=== PATIENT | male | born 1950 | race African-American/Black ===

== ENCOUNTER 2022-02-03 20:12 | Inpatient (IN) | payer MEDICARE, MEDICAID ==
[~2022-02-03] VITALS: Ht 172.7 cm; Wt 88.2 kg
[2022-02-03 21:22] LABS: CLARITY URINE TURBID (CLEAR); COLOR URINE DARK YELLOW (YELLOW); KETONES URINE TRACE (NEGATIVE); LEUKOCYTE ESTERASE URINE 3+ (NEGATIVE); NITRITE URINE NEGATIVE (NEGATIVE); OCCULT BLOOD URINE 2+ (NEGATIVE); PROTEIN URINE 1+ (NEGATIVE); SPECIFIC GRAVITY URINE 1.023 (1.005-1.030)
[2022-02-03 21:32] LABS: BASOPHILS % 0.2 % (0.0-2.0); EOSINOPHILS % 0.4 % (0.0-5.0); HEMATOCRIT. 30.1 % (42.0-52.0); HEMOGLOBIN. 9.6 g/dL (14.0-18.0); LYMPHOCYTES % 12.3 % (20.0-50.0); MEAN CORPUSCULAR HEMOGLOBIN 26.9 pg (28.0-32.0); MEAN CORPUSCULAR VOLUME 84.1 fL (80.0-94.0); MEAN PLATELET VOLUME 7.8 fl (7.4-10.4); MONOCYTES % 9.3 % (2.0-8.0); NEUTROPHILS % 77.8 % (40.0-76.0); PLATELET 318 x1000/uL (130-400); RED BLOOD CELL COUNT 3.58 mill/uL (4.7-6.1); RED CELL DISTRIBUTION WIDTH 15.3 % (11.6-14.6)
[2022-02-03 21:37] LABS: CHLORIDE 103 mEq/L (98-107)
[2022-02-03] MEDS ORDERED: LEVOFLOXACIN 750MG PREMIX 150 ML IV ONE (22:15)
[2022-02-03] MEDS ORDERED: SODIUM CHLORIDE 0.9% 1000ML BAG (SEPSIS BOLUS) IV ONE (22:15)
[2022-02-03] MEDS ORDERED: VANCOMYCIN 1G PREMIX 200 ML IV ONE (22:15)
[2022-02-03] MEDS ORDERED: VANCOMYCIN 1GM PMX (XELLIA) 200 ML IV NR (22:15)
[2022-02-04] VITALS (47 sets, daily range): BP systolic 67–123; BP diastolic 34–94
[2022-02-04] MEDS ORDERED: INSULIN REGULAR (HUMULIN R) 300UNITS/3ML VIAL IV ONE
[2022-02-04] MEDS ORDERED: CALCIUM GLUCONATE 1,000 MG in DEXT 5% WATER 100 ML IV ONE ×2
[2022-02-04] MEDS ORDERED: SODIUM BICARBONATE 8.4% 1 MEQ/ML 50ML SYR IV ONE
[2022-02-04] MEDS ORDERED: INSULIN REGULAR (HUMULIN R) 300UNITS/3ML VIAL IV NR (00:30)
[2022-02-04] MEDS ORDERED: CALCIUM GLUCONATE 1GM PREMIX 50 ML IV NR (00:30)
[2022-02-04] MEDS ORDERED: DEXTROSE 50% WATER 50ML SYRINGE IV ONE ×3 (03:45→05:45)
[2022-02-04] MEDS ORDERED: SODIUM POLYSTYRENE SULFONATE 15 G/60 ML BOT PO NR (06:00)
[2022-02-04] MEDS ORDERED: NOREPINEPHRINE 8MG/250ML PMX 250 ML IV STA (08:19)
[2022-02-04] MEDS ORDERED: ALBUMIN HUMAN 25GM/100ML (25%) IV ONE (08:30)
[2022-02-04] MEDS ORDERED: ONDANSETRON HCL 4MG/2ML INJ IV PRN (09:15)
[2022-02-04] MEDS ORDERED: CLONIDINE 0.1MG TABLET PO PRN (09:15)
[2022-02-04] MEDS ORDERED: IPRATROPIUM/ALBUTEROL 0.5-3(2.5)MG/3ML NEB HHN PRN (09:15)
[2022-02-04] MEDS ORDERED: NALOXONE HCL 0.4MG/ML VIAL IV PRN (09:45)
[2022-02-04] MEDS ORDERED: VANCOMYCIN 1GM PMX (XELLIA) 200 ML IV NR (10:00)
[2022-02-04] MEDS: DEXT 5%/0.45% NACL 1000ML 1,000 ML IV SCH (12:23)
[2022-02-04] MEDS ORDERED: LIDOCAINE HCL 1% 10 MG/ML 10ML VIAL ONE (12:32)
[2022-02-04 12:58] LABS: HEMATOCRIT. 29.5 % (42.0-52.0); HEMOGLOBIN. 9.3 g/dL (14.0-18.0); MEAN CORPUSCULAR HEMOGLOBIN 26.3 pg (28.0-32.0); MEAN CORPUSCULAR VOLUME 83.3 fL (80.0-94.0); MEAN PLATELET VOLUME 8.2 fl (7.4-10.4); PLATELET 282 x1000/uL (130-400); RED BLOOD CELL COUNT 3.54 mill/uL (4.7-6.1); RED CELL DISTRIBUTION WIDTH 15.2 % (11.6-14.6)
[2022-02-04 13:08] LABS: PHOSPHORUS 4.8 mg/dL (2.5-4.9)
[2022-02-04 13:38] LABS: PLATELET ESTIMATE NORMAL
[2022-02-04] MEDS: NOREPINEPHRINE 8 MG in DEXT 5% WATER 242 ML IV PRN ×2 (14:51→21:53)
[2022-02-05] VITALS (93 sets, daily range): BP systolic 70–150; BP diastolic 36–88
[2022-02-05] MEDS: DEXT 5%/0.45% NACL 1000ML 1,000 ML IV SCH ×2 (00:38→15:06)
[2022-02-05] MEDS: NOREPINEPHRINE 8 MG in DEXT 5% WATER 242 ML IV PRN ×3 (03:37→16:37)
[2022-02-05 05:12] LABS: HEMATOCRIT. 34.3 % (42.0-52.0); HEMOGLOBIN. 10.6 g/dL (14.0-18.0); MEAN CORPUSCULAR HEMOGLOBIN 26.1 pg (28.0-32.0); MEAN CORPUSCULAR VOLUME 84.7 fL (80.0-94.0); MEAN PLATELET VOLUME 7.8 fl (7.4-10.4); PLATELET 297 x1000/uL (130-400); RED BLOOD CELL COUNT 4.05 mill/uL (4.7-6.1); RED CELL DISTRIBUTION WIDTH 15.4 % (11.6-14.6)
[2022-02-05] MEDS: SODIUM HYPOCHLORITE SOLUTION (0.5%)FULL STRENGTH TOP SCH (10:35)
[2022-02-05 12:10] LABS: PLATELET ESTIMATE NORMAL
[2022-02-05 18:29] LABS: BG BASE EXCESS -4.6 mmol/L (-2.0-2.0); BG CARBOXYHEMOGLOBIN 0.3 % (0.5-1.5); BG DEOXYHEMOGLOBIN 4.6 % (0.0-5.0); BG FRACTION INSPIRED OXYGEN 21; BG HCO3 ACT 21.7 mmol/L (22.0-26.0); BG METHEMOGLOBIN 0.7 % (0.0-1.5); BG OXYGEN SATURATION 95.4 % (92.0-98.5); BG OXYHEMOGLOBIN 94.4 % (94.0-97.0); BG PCO2 45.7 mmHg (35.0-45.0); BG PH 7.295 (7.350-7.450); BG PO2 81.1 mmHg (75.0-100.0); BG SAMPLE SITE RIGHT RADIAL; BG TOTAL HEMOGLOBIN 10.4 g/dL (12.0-18.0); BG VENT MODE ROOM AIR
[2022-02-05] MEDS ORDERED: VANCOMYCIN 750MG PREMIX 150 ML IV NR (20:00)
[2022-02-05] MEDS ORDERED: LEVOFLOXACIN 500MG PREMIX 100 ML IV SCH (21:00)
[2022-02-05] MEDS ORDERED: LEVOFLOXACIN 750MG PREMIX 150 ML IV SCH (21:00)
[2022-02-06] VITALS (64 sets, daily range): BP systolic 67–152; BP diastolic 42–89
[2022-02-06] MEDS: NOREPINEPHRINE 8 MG in DEXT 5% WATER 242 ML IV PRN ×3 (00:11→19:06)
[2022-02-06] MEDS: DIPHENHYDRAMINE 50MG/ML VIAL IV PRN (00:20)
[2022-02-06] MEDS: MORPHINE SULFATE 2 MG/ML CPJ (NOT FOR IM USE) IV PRN (02:58)
[2022-02-06] MEDS: DEXT 5%/0.45% NACL 1000ML 1,000 ML IV SCH (04:59)
[2022-02-06 06:13] LABS: HEMATOCRIT. 28.5 % (42.0-52.0); HEMOGLOBIN. 9.5 g/dL (14.0-18.0); MEAN CORPUSCULAR HEMOGLOBIN 27.7 pg (28.0-32.0); MEAN CORPUSCULAR VOLUME 83.7 fL (80.0-94.0); MEAN PLATELET VOLUME 8.5 fl (7.4-10.4); PLATELET 225 x1000/uL (130-400); RED BLOOD CELL COUNT 3.41 mill/uL (4.7-6.1)
[2022-02-06 06:30] LABS: CHLORIDE 109 mEq/L (98-107)
[2022-02-06 06:42] LABS: CREATINE KINASE 731 IU/L (39-308); PHOSPHORUS 2.5 mg/dL (2.5-4.9)
[2022-02-06] MEDS: SODIUM HYPOCHLORITE SOLUTION (0.5%)FULL STRENGTH TOP SCH (09:00)
[2022-02-06] MEDS: MUPIROCIN 2% OINT 15GM TOP SCH (09:00)
[2022-02-06] MEDS: LIDOCAINE HCL 4% CREAM 76GM TUBE TP SCH (09:00)
[2022-02-06] MEDS ORDERED: HYDROCODONE/ACETAMINOPHEN 5/325MG TABLET PO PRN (09:45)
[2022-02-06] MEDS: MIDODRINE HCL 5MG TABLET PO SCH ×3 (10:00→20:21)
[2022-02-06 10:52] LABS: PLATELET ESTIMATE NORMAL
[2022-02-06] MEDS ORDERED: VANCOMYCIN 1,000 MG in DEXT 5% WATER 250 ML IV SCH (14:00)
[2022-02-07] VITALS (76 sets, daily range): BP systolic 68–160; BP diastolic 35–94
[2022-02-07] MEDS: MORPHINE SULFATE 2 MG/ML CPJ (NOT FOR IM USE) IV PRN (04:48)
[2022-02-07 06:09] LABS: BASOPHILS % 0.3 % (0.0-2.0); EOSINOPHILS % 1.9 % (0.0-5.0); HEMATOCRIT. 26.4 % (42.0-52.0); HEMOGLOBIN. 8.5 g/dL (14.0-18.0); LYMPHOCYTES % 16.5 % (20.0-50.0); MEAN CORPUSCULAR HEMOGLOBIN 27.2 pg (28.0-32.0); MEAN CORPUSCULAR VOLUME 84.7 fL (80.0-94.0); MEAN PLATELET VOLUME 8.1 fl (7.4-10.4); MONOCYTES % 11.3 % (2.0-8.0); PLATELET 135 x1000/uL (130-400); RED BLOOD CELL COUNT 3.12 mill/uL (4.7-6.1); RED CELL DISTRIBUTION WIDTH 15.3 % (11.6-14.6)
[2022-02-07] MEDS: DEXT 5%/0.45% NACL 1000ML 1,000 ML IV SCH (06:26)
[2022-02-07] MEDS: NOREPINEPHRINE 8 MG in DEXT 5% WATER 242 ML IV PRN (06:27)
[2022-02-07 07:17] LABS: CHLORIDE 110 mEq/L (98-107)
[2022-02-07] MEDS: MIDODRINE HCL 5MG TABLET PO SCH ×3 (08:40→16:39)
[2022-02-07] MEDS: MUPIROCIN 2% OINT 15GM TOP SCH (09:43)
[2022-02-07] MEDS: LIDOCAINE HCL 4% CREAM 76GM TUBE TP SCH (09:43)
[2022-02-07] MEDS: SODIUM HYPOCHLORITE SOLUTION (0.5%)FULL STRENGTH TOP SCH (09:43)
[2022-02-07] MEDS: LEVOFLOXACIN 750MG PREMIX 150 ML IV SCH (12:39)
[2022-02-07] MEDS: VANCOMYCIN 1GM PMX (XELLIA) 200 ML IV SCH (20:39)
[2022-02-07] MEDS: DIPHENHYDRAMINE 50MG/ML VIAL IV PRN (21:13)
[2022-02-08] VITALS (94 sets, daily range): BP systolic 75–170; BP diastolic 37–105
[2022-02-08 06:39] LABS: BASOPHILS % 0.2 % (0.0-2.0); EOSINOPHILS % 2.8 % (0.0-5.0); HEMATOCRIT. 25.7 % (42.0-52.0); HEMOGLOBIN. 8.4 g/dL (14.0-18.0); LYMPHOCYTES % 21.1 % (20.0-50.0); MEAN CORPUSCULAR HEMOGLOBIN 27.2 pg (28.0-32.0); MEAN PLATELET VOLUME 7.3 fl (7.4-10.4); MONOCYTES % 12.6 % (2.0-8.0); NEUTROPHILS % 63.3 % (40.0-76.0); PLATELET 212 x1000/uL (130-400); RED BLOOD CELL COUNT 3.09 mill/uL (4.7-6.1); RED CELL DISTRIBUTION WIDTH 15.1 % (11.6-14.6)
[2022-02-08 06:54] LABS: CHLORIDE 106 mEq/L (98-107)
[2022-02-08] MEDS: NOREPINEPHRINE 8 MG in DEXT 5% WATER 242 ML IV PRN (08:15)
[2022-02-08] MEDS: MIDODRINE HCL 5MG TABLET PO SCH ×3 (08:39→16:57)
[2022-02-08] MEDS: SODIUM HYPOCHLORITE SOLUTION (0.5%)FULL STRENGTH TOP SCH (08:39)
[2022-02-08] MEDS: LIDOCAINE HCL 4% CREAM 76GM TUBE TP SCH (08:40)
[2022-02-08] MEDS: MUPIROCIN 2% OINT 15GM TOP SCH (08:40)
[2022-02-08] MEDS: LEVOFLOXACIN 750MG PREMIX 150 ML IV SCH (11:58)
[2022-02-08] MEDS: VANCOMYCIN 1GM PMX (XELLIA) 200 ML IV SCH (21:36)
[2022-02-09] VITALS (90 sets, daily range): BP systolic 72–154; BP diastolic 36–79
[2022-02-09] MEDS: NOREPINEPHRINE 8 MG in DEXT 5% WATER 242 ML IV PRN ×2
[2022-02-09 06:03] LABS: BASOPHILS % 0.4 % (0.0-2.0); EOSINOPHILS % 3.3 % (0.0-5.0); HEMATOCRIT. 25.8 % (42.0-52.0); HEMOGLOBIN. 8.4 g/dL (14.0-18.0); LYMPHOCYTES % 22.9 % (20.0-50.0); MEAN CORPUSCULAR HEMOGLOBIN 26.9 pg (28.0-32.0); MEAN CORPUSCULAR VOLUME 82.4 fL (80.0-94.0); MEAN PLATELET VOLUME 7.6 fl (7.4-10.4); MONOCYTES % 13.8 % (2.0-8.0); NEUTROPHILS % 59.6 % (40.0-76.0); PLATELET 210 x1000/uL (130-400); RED BLOOD CELL COUNT 3.13 mill/uL (4.7-6.1); RED CELL DISTRIBUTION WIDTH 15.1 % (11.6-14.6)
[2022-02-09 08:52] LABS: CHLORIDE 103 mEq/L (98-107)
[2022-02-09] MEDS: SODIUM HYPOCHLORITE SOLUTION (0.5%)FULL STRENGTH TOP SCH (09:57)
[2022-02-09] MEDS: MIDODRINE HCL 5MG TABLET PO SCH ×3 (09:57→17:38)
[2022-02-09] MEDS: LIDOCAINE HCL 4% CREAM 76GM TUBE TP SCH (09:58)
[2022-02-09] MEDS: MUPIROCIN 2% OINT 15GM TOP SCH (09:59)
[2022-02-09] MEDS ORDERED: NALOXONE HCL 0.4MG/ML VIAL IV PRN (11:15)
[2022-02-09] MEDS: VANCOMYCIN 1GM PMX (XELLIA) 200 ML IV SCH (21:09)
[2022-02-10] VITALS (88 sets, daily range): BP systolic 72–129; BP diastolic 41–80
[2022-02-10 05:49] LABS: BASOPHILS % 0.4 % (0.0-2.0); EOSINOPHILS % 2.8 % (0.0-5.0); HEMATOCRIT. 24.7 % (42.0-52.0); LYMPHOCYTES % 25.1 % (20.0-50.0); MEAN CORPUSCULAR HEMOGLOBIN 26.9 pg (28.0-32.0); MEAN CORPUSCULAR VOLUME 83.4 fL (80.0-94.0); MEAN PLATELET VOLUME 7.4 fl (7.4-10.4); MONOCYTES % 13.9 % (2.0-8.0); NEUTROPHILS % 57.8 % (40.0-76.0); PLATELET 224 x1000/uL (130-400); RED BLOOD CELL COUNT 2.96 mill/uL (4.7-6.1); RED CELL DISTRIBUTION WIDTH 14.8 % (11.6-14.6)
[2022-02-10 06:18] LABS: CHLORIDE 101 mEq/L (98-107)
[2022-02-10] MEDS: SODIUM HYPOCHLORITE SOLUTION (0.5%)FULL STRENGTH TOP SCH (09:34)
[2022-02-10] MEDS: LIDOCAINE HCL 4% CREAM 76GM TUBE TP SCH (09:34)
[2022-02-10] MEDS: MUPIROCIN 2% OINT 15GM TOP SCH (09:35)
[2022-02-10] MEDS: MIDODRINE HCL 5MG TABLET PO SCH ×3 (09:36→17:10)
[2022-02-11] VITALS (84 sets, daily range): BP systolic 73–135; BP diastolic 15–93
[2022-02-11 06:50] LABS: BASOPHILS % 0.5 % (0.0-2.0); EOSINOPHILS % 1.9 % (0.0-5.0); HEMATOCRIT. 23.6 % (42.0-52.0); HEMOGLOBIN. 7.6 g/dL (14.0-18.0); LYMPHOCYTES % 22.7 % (20.0-50.0); MEAN CORPUSCULAR HEMOGLOBIN 27.2 pg (28.0-32.0); MEAN CORPUSCULAR VOLUME 84.6 fL (80.0-94.0); MEAN PLATELET VOLUME 7.4 fl (7.4-10.4); MONOCYTES % 14.8 % (2.0-8.0); NEUTROPHILS % 60.1 % (40.0-76.0); PLATELET 210 x1000/uL (130-400); RED BLOOD CELL COUNT 2.79 mill/uL (4.7-6.1); RED CELL DISTRIBUTION WIDTH 15.1 % (11.6-14.6)
[2022-02-11 07:10] LABS: CHLORIDE 104 mEq/L (98-107)
[2022-02-11] MEDS: MIDODRINE HCL 5MG TABLET PO SCH ×3 (08:43→18:01)
[2022-02-11] MEDS: VANCOMYCIN 1500MG in DEXTROSE 5% WATER 250ML IV SCH (08:43)
[2022-02-11] MEDS: SODIUM HYPOCHLORITE SOLUTION (0.5%)FULL STRENGTH TOP SCH (08:44)
[2022-02-11] MEDS: LIDOCAINE HCL 4% CREAM 76GM TUBE TP SCH (08:44)
[2022-02-11] MEDS: MUPIROCIN 2% OINT 15GM TOP SCH (08:44)
[2022-02-11] MEDS ORDERED: METO-539 PO (15:25)
[2022-02-11] MEDS ORDERED: FURO20TA4 PO (15:25)
[2022-02-11] MEDS ORDERED: PROT20 PO (15:26)
[2022-02-11] MEDS ORDERED: METF-416 PO (15:26)
[2022-02-11] MEDS ORDERED: LISI-186 PO (15:27)
[2022-02-11] MEDS ORDERED: FOLI-43 PO (15:27)
[2022-02-11] MEDS: NOREPINEPHRINE 8 MG in DEXT 5% WATER 242 ML IV PRN (19:43)
[2022-02-12] VITALS (84 sets, daily range): BP systolic 74–143; BP diastolic 32–75
[2022-02-12 06:02] LABS: CHLORIDE 101 mEq/L (98-107)
[2022-02-12 06:06] LABS: BASOPHILS % 0.2 % (0.0-2.0); EOSINOPHILS % 1.2 % (0.0-5.0); HEMOGLOBIN. 7.4 g/dL (14.0-18.0); MEAN CORPUSCULAR VOLUME 83.5 fL (80.0-94.0); MEAN PLATELET VOLUME 7.3 fl (7.4-10.4); MONOCYTES % 12.8 % (2.0-8.0); NEUTROPHILS % 69.8 % (40.0-76.0); PLATELET 234 x1000/uL (130-400); RED BLOOD CELL COUNT 2.76 mill/uL (4.7-6.1); RED CELL DISTRIBUTION WIDTH 15.5 % (11.6-14.6)
[2022-02-12] MEDS: MIDODRINE HCL 5MG TABLET PO SCH ×3 (08:43→17:34)
[2022-02-12] MEDS: LIDOCAINE HCL 4% CREAM 76GM TUBE TP SCH (08:43)
[2022-02-12] MEDS: SODIUM HYPOCHLORITE SOLUTION (0.5%)FULL STRENGTH TOP SCH (08:43)
[2022-02-12] MEDS: MUPIROCIN 2% OINT 15GM TOP SCH (08:43)
[2022-02-12] MEDS: NOREPINEPHRINE 8 MG in DEXT 5% WATER 242 ML IV PRN (12:11)
[2022-02-12] MEDS: VANCOMYCIN 1500MG in DEXTROSE 5% WATER 250ML IV SCH (21:12)
[2022-02-13] VITALS (54 sets, daily range): BP systolic 73–118; BP diastolic 30–94
[2022-02-13 06:10] LABS: CHLORIDE 102 mEq/L (98-107)
[2022-02-13] MEDS: SODIUM HYPOCHLORITE SOLUTION (0.5%)FULL STRENGTH TOP SCH (08:56)
[2022-02-13] MEDS: MIDODRINE HCL 5MG TABLET PO SCH ×3 (08:56→21:47)
[2022-02-13] MEDS: LIDOCAINE HCL 4% CREAM 76GM TUBE TP SCH (08:56)
[2022-02-13] MEDS: MUPIROCIN 2% OINT 15GM TOP SCH (08:57)
[2022-02-13 09:28] LABS: MEAN CORPUSCULAR HEMOGLOBIN 27.1 pg (28.0-32.0); MEAN CORPUSCULAR VOLUME 83.6 fL (80.0-94.0); MEAN PLATELET VOLUME 7.3 fl (7.4-10.4); PLATELET 231 x1000/uL (130-400); RED BLOOD CELL COUNT 2.43 mill/uL (4.7-6.1); RED CELL DISTRIBUTION WIDTH 15.2 % (11.6-14.6)
[2022-02-13 09:31] LABS: HEMATOCRIT. 20.3 % (42.0-52.0); HEMOGLOBIN. 6.6 g/dL (14.0-18.0)
[2022-02-13 12:34] LABS: PLATELET ESTIMATE NORMAL
[2022-02-13 23:35] LABS: HEMATOCRIT 22.8 % (42.0-52.0); HEMOGLOBIN 7.3 g/dL (14.0-18.0); MEAN CORPUSCULAR HEMOGLOBIN 27.5 pg (28.0-32.0); MEAN CORPUSCULAR VOLUME 85.9 fL (80.0-94.0); PLATELET 250 x1000/uL (130-400); RED BLOOD CELL COUNT 2.65 mill/uL (4.7-6.1); RED CELL DISTRIBUTION WIDTH 15.5 % (11.6-14.6)
[2022-02-14] VITALS (12 sets, daily range): BP systolic 97–138; BP diastolic 57–74
[2022-02-14 04:48] LABS: HEMATOCRIT. 23.9 % (42.0-52.0); HEMOGLOBIN. 7.7 g/dL (14.0-18.0); MEAN CORPUSCULAR HEMOGLOBIN 27.2 pg (28.0-32.0); MEAN CORPUSCULAR VOLUME 83.9 fL (80.0-94.0); MEAN PLATELET VOLUME 7.3 fl (7.4-10.4); PLATELET 257 x1000/uL (130-400); RED BLOOD CELL COUNT 2.84 mill/uL (4.7-6.1); RED CELL DISTRIBUTION WIDTH 15.5 % (11.6-14.6)
[2022-02-14] MEDS: MIDODRINE HCL 5MG TABLET PO SCH ×3 (06:20→22:06)
[2022-02-14 07:12] LABS: CHLORIDE 105 mEq/L (98-107)
[2022-02-14 07:16] LABS: FOLIC ACID (FOLATE) SERUM 10.1 ng/mL (>5.38)
[2022-02-14 07:21] LABS: TOTAL IRON BINDING CAPACITY 188 ug/dL (250-450)
[2022-02-14] MEDS: LIDOCAINE HCL 4% CREAM 76GM TUBE TP SCH (09:00)
[2022-02-14] MEDS: MUPIROCIN 2% OINT 15GM TOP SCH (09:00)
[2022-02-14] MEDS: SODIUM HYPOCHLORITE SOLUTION (0.5%)FULL STRENGTH TOP SCH (09:00)
[2022-02-14 10:28] LABS: PLATELET ESTIMATE NORMAL
[2022-02-15] VITALS (13 sets, daily range): BP systolic 37–127; BP diastolic 15–75
[2022-02-15] MEDS: MIDODRINE HCL 5MG TABLET PO SCH ×3 (06:00→21:42)
[2022-02-15] MEDS: SODIUM HYPOCHLORITE SOLUTION (0.5%)FULL STRENGTH TOP SCH (09:43)
[2022-02-15] MEDS: MUPIROCIN 2% OINT 15GM TOP SCH (09:43)
[2022-02-15] MEDS: LIDOCAINE HCL 4% CREAM 76GM TUBE TP SCH (09:43)
[2022-02-15 11:14] LABS: BASOPHILS % 0.3 % (0.0-2.0); EOSINOPHILS % 1.1 % (0.0-5.0); HEMATOCRIT. 24.4 % (42.0-52.0); HEMOGLOBIN. 7.9 g/dL (14.0-18.0); LYMPHOCYTES % 13.1 % (20.0-50.0); MEAN CORPUSCULAR HEMOGLOBIN 27.5 pg (28.0-32.0); MEAN CORPUSCULAR VOLUME 85.2 fL (80.0-94.0); MEAN PLATELET VOLUME 7.4 fl (7.4-10.4); MONOCYTES % 6.9 % (2.0-8.0); NEUTROPHILS % 78.6 % (40.0-76.0); PLATELET 314 x1000/uL (130-400); RED BLOOD CELL COUNT 2.86 mill/uL (4.7-6.1); RED CELL DISTRIBUTION WIDTH 15.9 % (11.6-14.6)
[2022-02-15 11:41] LABS: CHLORIDE 105 mEq/L (98-107)
[2022-02-16] VITALS (15 sets, daily range): BP systolic 101–139; BP diastolic 53–81
[2022-02-16] MEDS: MIDODRINE HCL 5MG TABLET PO SCH ×3 (06:45→21:53)
[2022-02-16 07:01] LABS: BASOPHILS % 0.6 % (0.0-2.0); EOSINOPHILS % 2.7 % (0.0-5.0); HEMATOCRIT. 22.9 % (42.0-52.0); HEMOGLOBIN. 7.5 g/dL (14.0-18.0); LYMPHOCYTES % 26.2 % (20.0-50.0); MEAN CORPUSCULAR HEMOGLOBIN 27.6 pg (28.0-32.0); MEAN CORPUSCULAR VOLUME 84.1 fL (80.0-94.0); MEAN PLATELET VOLUME 7.6 fl (7.4-10.4); MONOCYTES % 11.4 % (2.0-8.0); NEUTROPHILS % 59.1 % (40.0-76.0); PLATELET 296 x1000/uL (130-400); RED BLOOD CELL COUNT 2.73 mill/uL (4.7-6.1); RED CELL DISTRIBUTION WIDTH 15.9 % (11.6-14.6)
[2022-02-16 07:09] LABS: CHLORIDE 104 mEq/L (98-107)
[2022-02-16] MEDS: MUPIROCIN 2% OINT 15GM TOP SCH (09:54)
[2022-02-16] MEDS: LIDOCAINE HCL 4% CREAM 76GM TUBE TP SCH (09:54)
[2022-02-16] MEDS: SODIUM HYPOCHLORITE SOLUTION (0.5%)FULL STRENGTH TOP SCH (09:55)
[2022-02-17] VITALS (13 sets, daily range): BP systolic 98–127; BP diastolic 52–76
[2022-02-17] MEDS: MIDODRINE HCL 5MG TABLET PO SCH ×3 (06:49→21:28)
[2022-02-17] MEDS: MUPIROCIN 2% OINT 15GM TOP SCH (09:00)
[2022-02-17] MEDS: LIDOCAINE HCL 4% CREAM 76GM TUBE TP SCH (09:00)
[2022-02-17] MEDS: SODIUM HYPOCHLORITE SOLUTION (0.5%)FULL STRENGTH TOP SCH (09:00)
[2022-02-17] MEDS ORDERED: MUPI22OI2 TOP (10:16)
[2022-02-17] MEDS ORDERED: DAKI TOP (10:16)
[2022-02-17] MEDS ORDERED: MIDO5TAB4 PO (10:16)
[2022-02-18] VITALS (17 sets, daily range): BP systolic 47–133; BP diastolic 19–83
[2022-02-18] MEDS: MIDODRINE HCL 5MG TABLET PO SCH ×3 (07:04→21:43)
[2022-02-18] MEDS: SODIUM HYPOCHLORITE SOLUTION (0.5%)FULL STRENGTH TOP SCH (12:34)
[2022-02-18] MEDS: LIDOCAINE HCL 4% CREAM 76GM TUBE TP SCH (12:34)
[2022-02-18] MEDS: MUPIROCIN 2% OINT 15GM TOP SCH (12:35)
[2022-02-18 16:51] LABS: CHLORIDE 98 mEq/L (98-107)
[2022-02-18 17:10] LABS: BASOPHILS % 0.6 % (0.0-2.0); EOSINOPHILS % 3.9 % (0.0-5.0); HEMATOCRIT. 23.4 % (42.0-52.0); HEMOGLOBIN. 7.7 g/dL (14.0-18.0); LYMPHOCYTES % 26.1 % (20.0-50.0); MEAN CORPUSCULAR HEMOGLOBIN 27.5 pg (28.0-32.0); MEAN CORPUSCULAR VOLUME 83.6 fL (80.0-94.0); MEAN PLATELET VOLUME 7.4 fl (7.4-10.4); MONOCYTES % 9.2 % (2.0-8.0); NEUTROPHILS % 60.2 % (40.0-76.0); PLATELET 358 x1000/uL (130-400)
[2022-02-19] VITALS (14 sets, daily range): BP systolic 106–142; BP diastolic 25–122
[2022-02-19 06:16] LABS: BASOPHILS % 0.6 % (0.0-2.0); EOSINOPHILS % 3.1 % (0.0-5.0); HEMATOCRIT. 23.9 % (42.0-52.0); HEMOGLOBIN. 7.9 g/dL (14.0-18.0); LYMPHOCYTES % 30.4 % (20.0-50.0); MEAN CORPUSCULAR VOLUME 84.3 fL (80.0-94.0); MEAN PLATELET VOLUME 7.3 fl (7.4-10.4); MONOCYTES % 10.1 % (2.0-8.0); NEUTROPHILS % 55.8 % (40.0-76.0); PLATELET 341 x1000/uL (130-400); RED BLOOD CELL COUNT 2.84 mill/uL (4.7-6.1); RED CELL DISTRIBUTION WIDTH 16.1 % (11.6-14.6)
[2022-02-19 06:43] LABS: CHLORIDE 101 mEq/L (98-107)
[2022-02-19 06:54] LABS: PHOSPHORUS 3.2 mg/dL (2.5-4.9)
[2022-02-19] MEDS: MIDODRINE HCL 5MG TABLET PO SCH ×3 (06:58→22:11)
[2022-02-19] MEDS: LIDOCAINE HCL 4% CREAM 76GM TUBE TP SCH (09:00)
[2022-02-19] MEDS: SODIUM HYPOCHLORITE SOLUTION (0.5%)FULL STRENGTH TOP SCH (09:00)
[2022-02-19] MEDS: MUPIROCIN 2% OINT 15GM TOP SCH (09:00)
[2022-02-19] MEDS ORDERED: MAGNESIUM 2 G PREMIX 50 ML IV NR (12:30)
[2022-02-20] VITALS (12 sets, daily range): BP systolic 91–134; BP diastolic 31–93
[2022-02-20 05:30] LABS: CHLORIDE 100 mEq/L (98-107)
[2022-02-20 06:10] LABS: BASOPHILS % 0.7 % (0.0-2.0); EOSINOPHILS % 3.2 % (0.0-5.0); HEMATOCRIT. 25.6 % (42.0-52.0); HEMOGLOBIN. 8.2 g/dL (14.0-18.0); LYMPHOCYTES % 25.3 % (20.0-50.0); MEAN CORPUSCULAR HEMOGLOBIN 27.3 pg (28.0-32.0); MEAN CORPUSCULAR VOLUME 84.8 fL (80.0-94.0); MEAN PLATELET VOLUME 7.4 fl (7.4-10.4); MONOCYTES % 10.5 % (2.0-8.0); NEUTROPHILS % 60.3 % (40.0-76.0); PLATELET 355 x1000/uL (130-400); RED BLOOD CELL COUNT 3.02 mill/uL (4.7-6.1); RED CELL DISTRIBUTION WIDTH 15.9 % (11.6-14.6)
[2022-02-20] MEDS: MIDODRINE HCL 5MG TABLET PO SCH ×3 (06:50→22:33)
[2022-02-20] MEDS: LIDOCAINE HCL 4% CREAM 76GM TUBE TP SCH (11:36)
[2022-02-20] MEDS: MUPIROCIN 2% OINT 15GM TOP SCH (11:36)
[2022-02-20] MEDS: PANTOT AC/MIN OIL/PET HY-PHL OINT (AQUAPHOR) TOP SCH (11:36)
[2022-02-21] VITALS (12 sets, daily range): BP systolic 98–134; BP diastolic 58–73
[2022-02-21] MEDS: MIDODRINE HCL 5MG TABLET PO SCH ×4 (07:09→21:25)
[2022-02-21] MEDS: LIDOCAINE HCL 4% CREAM 76GM TUBE TP SCH (09:00)
[2022-02-21] MEDS: PANTOT AC/MIN OIL/PET HY-PHL OINT (AQUAPHOR) TOP SCH (09:01)
[2022-02-21] MEDS: MUPIROCIN 2% OINT 15GM TOP SCH (09:01)
[2022-02-22] VITALS: BP 108/64
[2022-02-22 04:00] VITALS: BP 91/59
[2022-02-22] MEDS: MIDODRINE HCL 5MG TABLET PO SCH ×3 (05:37→20:40)
[2022-02-22] MEDS: PANTOT AC/MIN OIL/PET HY-PHL OINT (AQUAPHOR) TOP SCH (09:39)
[2022-02-22] MEDS: MUPIROCIN 2% OINT 15GM TOP SCH (09:40)
[2022-02-22] MEDS: LIDOCAINE HCL 4% CREAM 76GM TUBE TP SCH (09:43)
[2022-02-22 12:00] VITALS: BP 116/67
[2022-02-22 16:00] VITALS: BP 133/86
[2022-02-22 20:00] VITALS: BP 118/74
[2022-02-22] MEDS: ACETAMINOPHEN 325MG TABLET PO PRN (21:37)
[2022-02-23] VITALS: BP 105/62
[2022-02-23 04:00] VITALS: BP 103/70
[2022-02-23 08:00] VITALS: BP 109/65
[2022-02-23] MEDS: LIDOCAINE HCL 4% CREAM 76GM TUBE TP SCH (09:00)
[2022-02-23] MEDS: PANTOT AC/MIN OIL/PET HY-PHL OINT (AQUAPHOR) TOP SCH (09:00)
[2022-02-23] MEDS: MUPIROCIN 2% OINT 15GM TOP SCH (09:00)
[2022-02-23 12:00] VITALS: BP 100/66
[2022-02-23] MEDS: MIDODRINE HCL 5MG TABLET PO SCH ×3 (14:10→22:45)
[2022-02-23 16:00] VITALS: BP 118/76
[2022-02-23 20:00] VITALS: BP 138/69
[2022-02-24 00:26] VITALS: BP 108/63
[2022-02-24 04:00] VITALS: BP 120/80
[2022-02-24] MEDS: MIDODRINE HCL 5MG TABLET PO SCH ×3 (05:01→21:36)
[2022-02-24 08:00] VITALS: BP 108/66
[2022-02-24] MEDS: PANTOT AC/MIN OIL/PET HY-PHL OINT (AQUAPHOR) TOP SCH (10:06)
[2022-02-24] MEDS: MUPIROCIN 2% OINT 15GM TOP SCH (10:07)
[2022-02-24] MEDS: LIDOCAINE HCL 4% CREAM 76GM TUBE TP SCH (10:08)
[2022-02-24 12:00] VITALS: BP 114/71
[2022-02-24 16:00] VITALS: BP 110/67
[2022-02-24 20:00] VITALS: BP 98/68
[2022-02-25 00:50] VITALS: BP 118/80
[2022-02-25 05:04] VITALS: BP 100/67
[2022-02-25] MEDS: MIDODRINE HCL 5MG TABLET PO SCH ×3 (06:32→21:26)
[2022-02-25 07:07] LABS: HEMATOCRIT. 27.3 % (42.0-52.0); HEMOGLOBIN. 8.9 g/dL (14.0-18.0); MEAN CORPUSCULAR HEMOGLOBIN 27.5 pg (28.0-32.0); MEAN CORPUSCULAR VOLUME 84.1 fL (80.0-94.0); MEAN PLATELET VOLUME 7.6 fl (7.4-10.4); PLATELET 334 x1000/uL (130-400); RED BLOOD CELL COUNT 3.24 mill/uL (4.7-6.1); RED CELL DISTRIBUTION WIDTH 16.2 % (11.6-14.6)
[2022-02-25 07:10] LABS: CHLORIDE 98 mEq/L (98-107)
[2022-02-25 08:00] VITALS: BP 110/81
[2022-02-25] MEDS: LIDOCAINE HCL 4% CREAM 76GM TUBE TP SCH (08:48)
[2022-02-25] MEDS: PANTOT AC/MIN OIL/PET HY-PHL OINT (AQUAPHOR) TOP SCH (08:48)
[2022-02-25] MEDS: MUPIROCIN 2% OINT 15GM TOP SCH (08:49)
[2022-02-25 11:03] LABS: PLATELET ESTIMATE NORMAL
[2022-02-25 12:00] VITALS: BP 129/51
[2022-02-25 16:00] VITALS: BP 117/70
[2022-02-25 20:00] VITALS: BP 114/65
[2022-02-26] VITALS: BP 115/68
[2022-02-26 04:00] VITALS: BP 104/65
[2022-02-26] MEDS: MIDODRINE HCL 5MG TABLET PO SCH ×3 (04:54→22:09)
[2022-02-26 08:00] VITALS: BP 110/66
[2022-02-26] MEDS: ACETAMINOPHEN 325MG TABLET PO PRN (08:14)
[2022-02-26 08:26] LABS: CHLORIDE 101 mEq/L (98-107)
[2022-02-26] MEDS: MUPIROCIN 2% OINT 15GM TOP SCH (09:00)
[2022-02-26] MEDS: LIDOCAINE HCL 4% CREAM 76GM TUBE TP SCH (09:00)
[2022-02-26] MEDS: PANTOT AC/MIN OIL/PET HY-PHL OINT (AQUAPHOR) TOP SCH (09:00)
[2022-02-26 12:00] VITALS: BP 95/56
[2022-02-26 14:39] LABS: PHOSPHORUS 3.3 mg/dL (2.5-4.9)
[2022-02-26 16:00] VITALS: BP 115/66
[2022-02-26 20:00] VITALS: BP 100/65
[2022-02-27] VITALS: BP 104/69
[2022-02-27 04:00] VITALS: BP 111/76
[2022-02-27] MEDS: MIDODRINE HCL 5MG TABLET PO SCH ×3 (05:15→21:00)
[2022-02-27 08:05] VITALS: BP 112/73
[2022-02-27] MEDS: MUPIROCIN 2% OINT 15GM TOP SCH (08:20)
[2022-02-27] MEDS: PANTOT AC/MIN OIL/PET HY-PHL OINT (AQUAPHOR) TOP SCH (08:20)
[2022-02-27] MEDS: LIDOCAINE HCL 4% CREAM 76GM TUBE TP SCH (08:21)
[2022-02-27 10:40] LABS: CHLORIDE 98 mEq/L (98-107)
[2022-02-27 11:57] VITALS: BP 122/74
[2022-02-27 16:00] VITALS: BP 90/64
[2022-02-27 20:00] VITALS: BP 116/68
[2022-02-28] VITALS: BP 108/68
[2022-02-28 04:00] VITALS: BP 105/61
[2022-02-28] MEDS: MIDODRINE HCL 5MG TABLET PO SCH ×3 (06:35→22:04)
[2022-02-28 08:00] VITALS: BP 111/63
[2022-02-28] MEDS: LIDOCAINE HCL 4% CREAM 76GM TUBE TP SCH (10:38)
[2022-02-28] MEDS: MUPIROCIN 2% OINT 15GM TOP SCH (10:38)
[2022-02-28] MEDS: PANTOT AC/MIN OIL/PET HY-PHL OINT (AQUAPHOR) TOP SCH (10:38)
[2022-02-28 12:00] VITALS: BP 130/80
[2022-02-28 16:00] VITALS: BP 110/66
[2022-02-28 20:00] VITALS: BP 100/58
[2022-03-01] VITALS: BP 110/73
[2022-03-01 04:00] VITALS: BP 118/62
[2022-03-01] MEDS: MIDODRINE HCL 5MG TABLET PO SCH ×3 (05:51→21:34)
[2022-03-01 08:00] VITALS: BP 112/68
[2022-03-01 12:00] VITALS: BP 106/64
[2022-03-01] MEDS: LIDOCAINE HCL 4% CREAM 76GM TUBE TP SCH (12:15)
[2022-03-01] MEDS: MUPIROCIN 2% OINT 15GM TOP SCH (12:15)
[2022-03-01] MEDS: PANTOT AC/MIN OIL/PET HY-PHL OINT (AQUAPHOR) TOP SCH (12:15)
[2022-03-01 16:00] VITALS: BP 97/69
[2022-03-01 20:00] VITALS: BP 116/83
[2022-03-02] VITALS: BP 120/64
[2022-03-02 04:00] VITALS: BP 103/60
[2022-03-02] MEDS: MIDODRINE HCL 5MG TABLET PO SCH (05:23)
[2022-03-02 08:00] VITALS: BP 106/60
[2022-03-02] MEDS: LIDOCAINE HCL 4% CREAM 76GM TUBE TP SCH (09:45)
[2022-03-02] MEDS: MUPIROCIN 2% OINT 15GM TOP SCH (09:46)
[2022-03-02] MEDS: PANTOT AC/MIN OIL/PET HY-PHL OINT (AQUAPHOR) TOP SCH (09:46)
[2022-03-02 11:36] VITALS: BP 110/73
[2022-03-02 12:00] VITALS: BP 128/75
== END 2022-03-02 15:25 | DRG 720 ==
LOC: ER 20:12 → EDBEDREQ 20:21 → EDBEDREQSVC 22:14 → EDBEDREQTM 22:14 → MICUSO 23:59 → EDBEDREQTM 02-04 00:05 → EDBEDREQSVC 02-04 00:05 → EDBEDREQ 02-04 00:05 → CVICU 02-04 10:33 → 5EST 02-13 13:25 → 7WST 02-21 10:48
PROVIDERS: ADMIT Internal Medicine; ATTEND Internal Medicine
PROC: 02HV33Z Insertion of Infusion Device into Superior Vena Cava, Percutaneous Approach (ICD-10-PCS; 2022-02-04)
PROC: B548ZZA Ultrasonography of Superior Vena Cava, Guidance (ICD-10-PCS; 2022-02-04)
PROC: 30233N1 Transfusion of Nonautologous Red Blood Cells into Peripheral Vein, Percutaneous Approach (ICD-10-PCS; principal; 2022-02-13)
DX: A41.02 Sepsis due to Methicillin resistant Staphylococcus aureus (principal); R65.21 Severe sepsis with septic shock; G93.41 Metabolic encephalopathy; E43 Unspecified severe protein-calorie malnutrition; L89.153 Pressure ulcer of sacral region, stage 3; I13.0 Hypertensive heart and chronic kidney disease with heart failure and stage 1 through stage 4 chronic kidney disease, or unspecified chronic kidney disease; N17.9 Acute kidney failure, unspecified; I50.9 Heart failure, unspecified; E87.1 Hypo-osmolality and hyponatremia; D64.9 Anemia, unspecified; E11.22 Type 2 diabetes mellitus with diabetic chronic kidney disease; L03.115 Cellulitis of right lower limb; E87.5 Hyperkalemia; I87.2 Venous insufficiency (chronic) (peripheral); L03.116 Cellulitis of left lower limb; N39.0 Urinary tract infection, site not specified; Z20.822 Contact with and (suspected) exposure to COVID-19; N18.9 Chronic kidney disease, unspecified; I89.0 Lymphedema, not elsewhere classified; L97.919 Non-pressure chronic ulcer of unspecified part of right lower leg with unspecified severity; Z99.3 Dependence on wheelchair; Z79.899 Other long term (current) drug therapy; Z68.29 Body mass index [BMI] 29.0-29.9, adult; Z88.0 Allergy status to penicillin
CPT/HCPCS: 36415; 36573; 36600; 71045; 76770; 80048; 80053; 80202; 81003; 82040; 82375; 82533; 82550; 82570; 82607; 82728; 82746; 82805; 82962; 83540; 83550; 83605; 83735; 83880; 83930; 83935; 84100; 84134; 84145; 84300; 84443; 84484; 85025; 85027; 86850; 86900; 86920; 87077; 87186; 87426; 92610; 93005; 93306; 93970; 94640; 97022; 97162; 97164; 97530; 99291; A6261; C1725; C1769; J0610; J1200; J1956; J2270; J2405; J3370; J3475; J3490; J7030; J7060; P9016; P9047; A4315